=== PATIENT | male | born 1980 | race Caucasian/White ===

== ENCOUNTER 2018-10-03 17:14 | Emergency (ER) | payer OTHER, MEDICAID ==
[~2018-10-03] VITALS: Ht 193 cm; Wt 124.3 kg
[2018-10-03] MEDS ORDERED: ANXIETY MED (17:28)
[2018-10-03] MEDS ORDERED: NORCO 5-325 TA1 EACH PO (17:37)
[2018-10-03] MEDS ORDERED: AUGMENTIN400 MG/53 PO (17:37)
[2018-10-03] MEDS ORDERED: AMOXICILLI400 MG/5 M PO (17:39)
[2018-10-03 17:47] VITALS: BP 138/83
== END 2018-10-03 17:48 | disposition home or self-care (01) ==
LOC: M.ERS 17:14
DX: K02.9 Dental caries, unspecified (principal); F41.9 Anxiety disorder, unspecified; F32.9 Major depressive disorder, single episode, unspecified

== ENCOUNTER 2018-12-06 19:03 | Emergency (ER) | payer OTHER, MEDICAID ==
[~2018-12-06] VITALS: Ht 193 cm; Wt 122.5 kg
[~2018-12-06 19:03] MED LIST: AMOXICILLI400 MG/5 M PO; ANXIETY MED; AUGMENTIN400 MG/53 PO; NORCO 5-325 TA1 EACH PO
[2018-12-06 19:43] LABS: ABSOLUTE BASOPHILS 0.1 thou/uL (0.0-0.2); ABSOLUTE EOSINOPHILS 0.2 thou/uL (0.0-0.7); ABSOLUTE LYMPHOCYTES 1.5 thou/uL (0.8-5.3); ABSOLUTE MONOCYTES 0.6 thou/uL (0.0-1.2); ABSOLUTE NEUTROPHILS 2.5 thou/uL (1.6-8.1); BASOPHILS 1.9 %; EOSINOPHILS 3.2 %; HEMATOCRIT 41.9 % (42.0-52.0); HEMOGLOBIN 14.5 gm/dL (14.0-18.0); MCH 28.4 pg (26.0-34.0); MCHC 34.6 g/dL (28.0-37.0); MCV 81.9 fL (80.0-100.0); MONOCYTES 13.1 %; MPV 9.5 fl. (7.2-11.1); NUCLEATED RBCS 0 /100WBC; PLATELET COUNT* 160 thou/uL (150-400); POLYS 51.8 %; RBC 5.11 mil/uL (4.50-6.00); RDW-CV 13.6 % (10.5-14.5); WBC 4.9 thou/uL (4.0-11.0)
[2018-12-06 19:51] LABS: ANION GAP 8 mmol/L (7-16); BUN 11 mg/dL (7-18); CALCIUM 8.8 mg/dL (8.5-10.1); CHLORIDE 103 mmol/L (98-107); CO2 26 mmol/L (21-32); CREATININE 1.4 mg/dL (0.6-1.3); GLUCOSE 114 mg/dL (70-99); POTASSIUM 3.9 mmol/L (3.5-5.1); SODIUM 137 mmol/L (136-145)
[2018-12-06 20:02] LABS: ALBUMIN 3.5 g/dL (3.4-5.0); ALKALINE PHOSPHATASE 82 U/L (46-116); NT-PRO BRAIN NAT PEPTIDE 53 pg/mL (<300); SGOT 23 U/L (15-37); SGPT 32 U/L (30-65); TOTAL BILIRUBIN 0.4 mg/dL (<0.1-1.0); TOTAL PROTEIN 7.1 g/dL (6.4-8.2); TROPONIN-I LEVEL <0.06 ng/mL (<0.06)
[2018-12-06 20:29] LABS: INFLUENZA A ANTIGEN None Detected (None Detect)
[2018-12-06] MEDS ORDERED: VENTOLIN HFA 1818 GM INH (20:48)
[2018-12-06] MEDS ORDERED: OSELB75 PO (20:48)
--- NOTE | 2018-12-07 10:27 | EKG ---
[place] [address] ELECTROCARDIOGRAM REPORT Name: RADHA ROLDAN Room: [facility]#: [id number] Admission: 12/06/18 Attend Phys: Discharge: 12/06/18 Date of : 76 Report #: [id number] THIS REPORT FOR: //name// [facility] ED Test Date: 2018-12-06 Test Time: 19:37:38 Pat Name: RADHA ROLDAN Department: Room: Gender: M [employer] Worker: KOFI : 1980 Requested By: Meredith Titus Order Number: [id number] MD: Eugenio Perez Measurements Intervals [place] Rate: 62 P: 45 MS: 151 QRS: -40 QRSD: 103 T: 49 QT: 419 QTc: 426 Interpretive Statements Sinus rhythm Left anterior fascicular block ST elev, probable normal early repol pattern Baseline wander in lead(s) V2 No previous ECG available for comparison Electronically Signed On 12-07-2018 10:27:43 [employer] by Eugenio Perez [email or web address] <ELECTRONICALLY SIGNED> By: Eugenio Perez MD, [facility] 12/07/18 1027 36 36 Eugenio Perez MD, FACC /EPI
== END 2018-12-06 21:17 | disposition home or self-care (01) ==
LOC: M.ERS 19:03
PROVIDERS: Nurse Practitioner Family
DX: J10.1 Influenza due to other identified influenza virus with other respiratory manifestations (principal); F41.9 Anxiety disorder, unspecified; F32.9 Major depressive disorder, single episode, unspecified; Z87.19 Personal history of other diseases of the digestive system

== ENCOUNTER 2021-10-11 15:48 | Emergency (ER) | payer OTHER, MEDICAID ==
[~2021-10-11] VITALS: Ht 193 cm; Wt 113.4 kg
[~2021-10-11 15:48] MED LIST changes: +OSELB75 PO; +VENTOLIN HFA 1818 GM INH
[2021-10-11 16:00] VITALS: BP 121/84
[2021-10-11] MEDS ORDERED: AMOXIL 875 MG875 M1 PO (17:03)
[2021-10-11] MEDS ORDERED: DOXYCYCLINE 10100 M2 PO (17:03)
== END 2021-10-11 17:13 | disposition home or self-care (01) ==
LOC: M.ERS 15:48
DX: L03.032 Cellulitis of left toe (principal); F41.9 Anxiety disorder, unspecified; F32.9 Major depressive disorder, single episode, unspecified